=== PATIENT | male | born 1990 | race Caucasian/White ===

== ENCOUNTER 2023-01-23 19:06 | Emergency (ER) | payer MEDICAID | END 2023-01-23 20:00 | disposition home or self-care (01) | LOC: DL.ED 19:06 | DX: S93.402A Sprain of unspecified ligament of left ankle, initial encounter (principal); F17.210 Nicotine dependence, cigarettes, uncomplicated; X50.1XXA Overexertion from prolonged static or awkward postures, initial encounter; Y93.89 Activity, other specified | CPT/HCPCS: 73610-LT; 99282; 99283 ==